=== PATIENT | male | born 1990 | race Caucasian/White ===

== ENCOUNTER 2017-02-16 08:33 | Outpatient (CLI) | payer OTHER ==
[2017-02-16] MEDS ORDERED: GADOBUTROL 10 MMOL/10 ML VIAL IVP ONE (09:21)
--- NOTE | 2017-02-17 04:24 | MRI Report ---
EXAM: MRI BRAIN WITHOUT AND WITH CONTRAST EXAM DATE: 02/16/2017 09:24 AM. CLINICAL HISTORY: HYPOESTHESIA OF SKIN weakness in hands and legs, extremity numbness. COMPARISON: None. TECHNIQUE: Multiplanar, multisequence T1-weighted and fluid-sensitive MR sequences of the brain were performed. Sequences optimized for routine evaluation. Other: None. Without and with IV Contrast: Yes , 10 mL Gadavist. FINDINGS: Brain Volume: Normal for age. Parenchyma/Dura: No masses, infarcts, or hemorrhage. No white matter lesions identified. Ventricles/Cisterns: Normal. No hydrocephalus. Sinuses: There is bilateral maxillary sinus mucosal thickening. No sinus fluid levels. Bones: Normal. There is no abnormal enhancement. There is normal opacification of the venous sinuses. IMPRESSION: 1. Mild chronic appearing paranasal sinus disease. 2. Otherwise normal brain MRI. [facility] Referring Provider Line: [phone] SITE ID: [id number]
== END 2017-02-16 08:34 | disposition home or self-care (01) ==
LOC: DI 08:33
PROVIDERS: ATTEND Family Medicine
DX: R20.1 Hypoesthesia of skin (principal); J32.9 Chronic sinusitis, unspecified; R51 Headache
CPT/HCPCS: 70553; A9585

== ENCOUNTER 2017-04-18 18:44 | Emergency (ER) | payer OTHER ==
[2017-04-18 19:24] LABS: BASOPHILS % (AUTO) 0.6 %; EOSINOPHILS # (AUTO) 0.3 10^3/uL (0.0-0.7); EOSINOPHILS % (AUTO) 3.6 %; LYMPHOCYTES # (AUTO) 3.5 10^3/uL (1.5-3.5); LYMPHOCYTES % (AUTO) 47.3 %; MEAN CORPUSCULAR HGB CONC 34.1 g/dL (32.0-36.0); MEAN CORPUSCULAR VOLUME 85.3 fL (80.0-94.0); MEAN PLATELET VOLUME 7.4 fL (7.4-11.4); MONOCYTES # (AUTO) 0.6 10^3/uL (0.0-1.0); MONOCYTES % (AUTO) 7.9 %; NEUTROPHILS % (AUTO) 40.6 %; NUCLEATED RED BLOOD CELLS AUTO 0.1 /100WBC; RED BLOOD COUNT 5.16 10^6/uL (4.70-6.10); RED CELL DISTRIBUTION WIDTH 13.3 % (12.0-15.0); UNCORRECTED WHITE BLOOD COUNT 7.3 x10^3/uL; WHITE BLOOD COUNT 7.3 x10^3/uL (4.8-10.8)
--- NOTE | 2017-04-18 19:30 | ED Physician Documentation ---
PD HPI CHEST PAIN - Stated complaint Stated Complaint: CHEST/SHOULDER PX - Chief complaint Chief Complaint: Cardiac - History obtained from History obtained from: Patient, Family - History of Present Illness Timing - onset: How many months ago (3) Timing - onset during: Rest Timing - duration: Minutes (30) Timing - details: Abrupt onset Pain level max: 3 Pain level now: 3 Quality: Aching, Dull Location: Left chest Radiation: Other (non-radiating) Improved by: Nothing. No: Rest Worsened by: No: Exertion, Inspiration, Eating, Movement, Palpation, Position Associated symptoms: No: Shortness of air, Diaphoresis, Nausea, Vomiting, Feeling faint / dizzy, General Weakness, Palpitations, Cough Recently seen: Not recently seen - Additional information Additional information: States intermittent chest pain for 3-4 months. sharp. States occurs daily for approx 30 mins at a time. Saw PCP recently, but not worked up for chest pain. Review of Systems Ten Systems: 10 systems reviewed and negative Constitutional: denies: Fever, Chills Nose: denies: Rhinorrhea / runny nose, Congestion Respiratory: denies: Cough, Hemoptysis, Wheezing Skin: denies: Rash Musculoskeletal: denies: Neck pain, Back pain Neurologic: denies: Headache PD PAST MEDICAL HISTORY - Past Medical History Past Medical History: Yes Respiratory: Tuberculosis Other Past Medical History: inactive TB with 9 months treatment - Past Surgical History Past Surgical History: Yes HEENT: Tonsil/Adenoidectomy - Present Medications Home Medications: Ambulatory Orders Medication Instructions Recorded Confirmed No Known Home Medications [No 04/18/17 04/18/17 Known Home Medications] - Allergies Allergies/Adverse Reactions: Allergies Allergy/AdvReac Type Severity Reaction Status Date / Time No Known Drug Allergies Allergy Verified 04/18/17 19:08 - Social History Does the pt smoke?: No Smoking Status: Never smoker Does the pt drink ETOH?: Yes Does the pt have substance abuse?: No - Family History Family history: reports: Other (no young CAD) - Immunizations Immunizations are current?: Yes PD ED PE NORMAL - Vitals Vital signs reviewed: Yes - General General: Alert and oriented X 3, Well developed/nourished - HEENT HEENT: Moist mucous membranes - Neck Neck: Supple, no meningeal sign, No JVD, No bruit - Cardiac Cardiac: RRR, No murmur, Strong equal pulses - Respiratory Respiratory: No respiratory distress, Clear bilaterally - Abdomen Abdomen: Soft, Non tender, Non distended - Derm Derm: Warm and dry, No rash - Extremities Extremities: No deformity - Neuro Neuro: Alert and oriented X 3 - Psych Psych: Normal mood, Normal affect Results - Vitals Vitals: Vital Signs - 24 hr 04/18/17 04/18/17 04/18/17 18:50 19:12 19:57 Temperature 37.0 C Heart Rate 66 59 L Respiratory 18 18 Rate Blood Pressure 132/76 H 133/75 H O2 Saturation 98 96 04/18/17 20:17 Temperature Heart Rate 58 L Respiratory 17 Rate Blood Pressure 113/72 O2 Saturation 98 Oxygen O2 Source Room air - EKG (time done) 1910 Rate: Rate (enter#) (75) Rhythm: NSR [place]: Normal Intervals: Normal NH QRS: Normal Ischemia: Normal ST segments Computer interpretation: Agree with computer - Labs Labs: Laboratory Tests 04/18/17 04/18/17 04/18/17 19:05 19:05 19:05 WBC 7.3 RBC 5.16 Hgb 15.0 Hct 44.0 MCV 85.3 MCH 29.0 MCHC 34.1 RDW 13.3 Plt Count 175 MPV 7.4 Neut # 3.0 Lymph # 3.5 Cameron # 0.6 Eos # 0.3 Baso # 0.0 Absolute Nucleated RBC 0.01 Nucleated RBCs 0.1 Sodium 136 Potassium 3.4 L Chloride 103 Carbon Dioxide 26 Anion Gap 7.0 BUN 20 Creatinine 1.1 Estimated GFR (MDRD) 80 L Glucose 104 H Calcium 9.0 Total Bilirubin 0.7 AST 30 ALT 40 Alkaline Phosphatase 66 Troponin I < 0.04 Total Protein 7.7 Albumin 4.4 Globulin 3.3 Albumin/Globulin Ratio 1.3 Lipase 23 - Rads (name of study) cxr Radiology: Prelim report reviewed, EMP read contemporaneously, See rad report ( Borderline cardiomegaly. No acute abnormality) PD MEDICAL DECISION MAKING - ED course Complexity details: reviewed results, re-evaluated patient, considered differential (No ST elevation CO, no aortic dissection, no PE, no tension pneumothorax, no aortic aneurysm), d/w patient, d/w family ED course: Patient is a 26-year-old male who presents to the emergency department with chest pain intermittently for the last 3 months. This occurs daily, lasts for approximately 30 minutes and then resolves. Does not seem to be related to food or exercise. Asymptomatic in the emergency department. No acute findings on EKG, laboratory testing. Does have borderline cardiomegaly on chest x-ray, I could follow up with an echocardiogram as an outpatient. Patient and family counseled regarding signs and symptoms for which I believe and urgent re- evaluation would be necessary. Patient with good understanding of and agreement to plan and is comfortable going home at this time This document was made in part using voice recognition software. While efforts are made to proofread this document, sound alike and grammatical errors may occur. Departure - Departure Disposition: Home, Self Care Clinical Impression: Chest pain Qualifiers: Chest pain type: unspecified Qualified Code(s): R07.9 - Chest pain, unspecified Condition: Good Instructions: ED Chest Pain Atypical Unkn Cause Follow-Up: LETY BRADEN [Primary Care Provider] - Within 1 week Comments: The cause of your symptoms is unclear today. Your EKG, chest xray and lab work are normal. Follow up with your doctor for further testing. Return if you worsen. The radiologist read your xray as upper limit of normal on chest xray. You should have an echocardiogram with the [facility]. Discharge Date/Time: 04/18/17 20:25
[2017-04-18 19:32] LABS: ALBUMIN/GLOBULIN RATIO 1.3 (1.0-2.2); BILIRUBIN,TOTAL 0.7 mg/dL (0.2-1.0); CREATININE 1.1 mg/dL (0.6-1.2); POTASSIUM 3.4 mmol/L (3.5-5.0); TOTAL PROTEIN 7.7 g/dL (6.7-8.2)
--- NOTE | 2017-04-18 20:13 | XRAY Preliminary Report ---
Exam: XR Chest 1 View IMPRESSION: Upper normal heart size. No definite acute disease. [facility] SITE ID: [id number]
--- NOTE | 2017-04-18 20:16 | XRAY Report ---
EXAM: CHEST RADIOGRAPHY EXAM DATE: 04/18/2017 07:47 PM. CLINICAL HISTORY: Chest pain. COMPARISON: None. TECHNIQUE: 1 view. FINDINGS: Lungs/Pleura: No localized infiltrate, consolidation, effusion, or pneumothorax. Mediastinum: Overall heart size upper limit of normal for portable technique. Upper lobe vessels not distended. Other: None. IMPRESSION: Upper normal heart size. No definite acute disease. [facility] Referring Provider Line: [phone] SITE ID: [id number]
[2017-04-18 20:18] VITALS: BP 113/72
== END 2017-04-18 20:25 | disposition home or self-care (01) ==
LOC: ED 18:44
DX: R07.9 Chest pain, unspecified (principal)
CPT/HCPCS: 36415; 71010; 80053; 83690; 84484; 85025; 93005; 99284

== ENCOUNTER 2018-11-24 20:31 | Emergency (ER) | payer OTHER ==
--- NOTE | 2018-11-24 23:25 | ED Physician Documentation ---
PD HPI MALE - Stated complaint Stated Complaint: MALE /POST OP SWELLING - Chief complaint Chief Complaint: General - History obtained from History obtained from: Patient - History of Present Illness Timing - onset: Enter time (14:00), Today Timing - details: Gradual onset Associated symptoms: Scrotal swelling. No: Dysuria, Urinary frequency, Unable to urinate, Hematuria Recently seen: Surgery - Additional information Additional information: underwent vasectomy today at 2 PM at [facility], c/o steadily increasing pain and swelling of scrotum, unrelieved with vicodin and valium. Review of Systems Constitutional: reports: Reviewed and negative GI: denies: Abdominal Pain : denies: Dysuria, Frequency, Unable to Void, Hematuria, Testicular pain (scrotal swelling and pain, but no testicular pain per se) PD PAST MEDICAL HISTORY - Past Medical History Past Medical History: No Respiratory: Tuberculosis - Past Surgical History Past Surgical History: Yes HEENT: Tonsil/Adenoidectomy - Present Medications Home Medications: Ambulatory Orders Medication Instructions Recorded Confirmed oxyCODONE [Roxicodone] 5 - 10 mg PO Q6H #20 tablet 11/25/18 - Allergies Allergies/Adverse Reactions: Allergies Allergy/AdvReac Type Severity Reaction Status Date / Time No Known Drug Allergies Allergy Verified 04/18/17 19:08 - Social History Does the pt smoke?: No Smoking Status: Never smoker Does the pt drink ETOH?: Yes Does the pt have substance abuse?: No - Immunizations Immunizations are current?: Yes - POLST Patient has POLST: No PD ED PE NORMAL - Vitals Vital signs reviewed: Yes - General General: Alert and oriented X 3, No acute distress, Well developed/nourished - Abdomen Abdomen: Soft, Non tender, Non distended PD ED PE EXPANDED - Male Male : Other (symmetric, moderate scrotal swelling with echymosis. no erythema, moderate tenderness to palpation. there is a small, midline 0.3 cm incision of scrotum that has trace dried, clotted blood but no active bleeding ) Results - Vitals Vitals: Oxygen O2 Source Room air PD MEDICAL DECISION MAKING - ED course Complexity details: re-evaluated patient, considered differential, d/w patient ED course: D/W Dr. Caal (urology validation intern at [facility]), recommends analgesia, elevation and support (such as would be provided with a jock strap), and f/u with urology. patient given IM dilaudid and, on reevaluation, he reports near-resolution of pain and is comfortable with d/c home, understands he must return if worse in any way Departure - Departure Disposition: 01 Home, Self Care Clinical Impression: Post-op pain Condition: Good Instructions: NARCOTIC, Oral, ED Post Op Pain Follow-Up: LETY BRADEN [Primary Care Provider] - Prescriptions: oxyCODONE [Roxicodone] 5 - 10 mg PO Q6H #20 tablet Comments: Follow up with your doctor at [facility], next available appointment Discharge Date/Time: 11/25/18 01:24
[2018-11-24] MEDS ORDERED: HYDROmorphone 1 MG/ML CARPUJECT IM STA (23:41)
[2018-11-25] MEDS ORDERED: oxyCODONE/ACET 5/325 Prepack 4 PO STA (01:05)
[2018-11-25 01:18] VITALS: BP 121/84
== END 2018-11-25 01:24 | disposition home or self-care (01) ==
LOC: ED 20:31
DX: G89.18 Other acute postprocedural pain (principal); N50.82 Scrotal pain; N50.89 Other specified disorders of the male genital organs
CPT/HCPCS: 96372; 99283; J1170